=== PATIENT | female | born 1975 | race Caucasian/White ===

== ENCOUNTER 2017-09-22 10:58 | Inpatient (IN) | payer MEDICAID ==
[~2017-09-22] VITALS: Ht 162.6 cm; Wt 65.5 kg
[2017-09-22 11:07] VITALS: Ht 162.6 cm; Wt 65.5 kg
[2017-09-22 11:45] LABS: BASOPHIL % 0.3 % (0-2); PLATELET COUNT 240 x10^3mcL (130-400); RED CELL DISTRIBUTION WIDTH 14.1 % (11.5-14.5)
[2017-09-22 12:01] LABS: CALCIUM 8.7 mg/dL (8.5-10.1); CARBON DIOXIDE 21.7 mmol/L (21-32); CHLORIDE SERUM 103 mmol/L (98-107); CREATININE SERUM 0.7 mg/dL (0.6-1.0); GFR1 > 60 mL/min; GLUCOSE SERUM 97 mg/dL (74-106); POTASSIUM SERUM 3.2 mmol/L (3.5-5.1); SODIUM SERUM 139 mmol/L (136-145)
[2017-09-22 12:04] LABS: ALBUMIN 3.9 g/dL (3.4-5.0); ALKALINE PHOSPHATASE 91 U/L (46-116); ALT/SGPT 81 U/L (14-59); AST/SGOT 72 U/L (15-37); BILIRUBIN TOTAL 0.99 mg/dL (0.20-1.00); HDL CHOLESTEROL 57 mg/dL (40-60); LIPASE 130 IU/L (73-393); TOTAL PROTEIN, SERUM 7.7 g/dL (6.4-8.2); TRIGLYCERIDES 81 mg/dL (<150)
[2017-09-22 12:11] LABS: CHOLESTEROL 115 mg/dL (<200)
[2017-09-22 12:12] LABS: T3 TOTAL 0.95 ng/mL
[2017-09-22 12:15] LABS: FREE T4 1.16 ng/dL (0.76-1.46); FREE THYROXINE INDEX 2.8 ug/dL (1.4-4.5)
[2017-09-22 13:35] LABS: UA SPECIFIC GRAVITY 1.025 (1.005-1.035); microscopic required? YES; urine erythrocyte 3+ (NEGATIVE)
[2017-09-22 15:32] LABS: PHOSPHOROUS 1.8 mg/dL (2.5-4.9)
[2017-09-22 15:50] VITALS: BP 103/83
[2017-09-22 17:08] LABS: AMPHETAMINE QUAL UR NONE DETECTED (See below)
[2017-09-22] MEDS ORDERED: XANAX0.25 MG PO (20:49)
[2017-09-22 21:59] VITALS: BP 102/62
[2017-09-23 04:40] LABS: PLATELET COUNT 171 x10^3mcL (130-400); RED CELL DISTRIBUTION WIDTH 14.2 % (11.5-14.5)
[2017-09-23 04:54] LABS: SODIUM SERUM 141 mmol/L (136-145)
[2017-09-23 04:55] LABS: CARBON DIOXIDE 22.2 mmol/L (21-32); CHLORIDE SERUM 109 mmol/L (98-107); CREATININE SERUM 0.6 mg/dL (0.6-1.0); GFR1 > 60 mL/min; GLUCOSE SERUM 71 mg/dL (74-106); PHOSPHOROUS 2.7 mg/dL (2.5-4.9)
[2017-09-23 05:57] VITALS: BP 109/65
[2017-09-23 08:41] VITALS: BP 92/56
[2017-09-23 10:58] LABS: BAND NEUTROPHIL 0 % (0-10); BASOPHIL 0 % (0-2); MONOCYTE 7 % (0-7); SEGMENTED NEUTROPHILS 45 % (37-75)
[2017-09-23 10:59] LABS: PLATELET MORPHOLOGY PLATELETS NORMAL
[2017-09-23 12:47] VITALS: BP 92/62
[2017-09-23 16:27] VITALS: BP 95/63
[2017-09-24 05:39] VITALS: BP 112/72
[2017-09-24 06:53] LABS: BASOPHIL % 0.3 % (0-2); PLATELET COUNT 209 x10^3mcL (130-400); RED CELL DISTRIBUTION WIDTH 14.3 % (11.5-14.5)
[2017-09-24 07:10] LABS: CARBON DIOXIDE 25.2 mmol/L (21-32); CHLORIDE SERUM 108 mmol/L (98-107); CREATININE SERUM 0.6 mg/dL (0.6-1.0); GFR1 > 60 mL/min; GLUCOSE SERUM 66 mg/dL (74-106); MAGNESIUM 1.8 mg/dL (1.8-2.4); PHOSPHOROUS 2.5 mg/dL (2.5-4.9); POTASSIUM SERUM 3.8 mmol/L (3.5-5.1); SODIUM SERUM 142 mmol/L (136-145)
[2017-09-24 08:00] VITALS: BP 112/70
[2017-09-24 15:42] VITALS: BP 112/70
== END 2017-09-24 17:10 | disposition home or self-care (01) | DRG 463 ==
LOC: ED 10:58 → DU 14:08
PROVIDERS: Family Medicine; Specialist
DX: N39.0 Urinary tract infection, site not specified (principal); N17.0 Acute kidney failure with tubular necrosis; A08.4 Viral intestinal infection, unspecified; G90.8 Other disorders of autonomic nervous system; R74.0 Nonspecific elevation of levels of transaminase and lactic acid dehydrogenase [LDH]; R31.9 Hematuria, unspecified; E03.9 Hypothyroidism, unspecified; Z53.29 Procedure and treatment not carried out because of patient's decision for other reasons; Z90.49 Acquired absence of other specified parts of digestive tract
CPT/HCPCS: 83880; 84439; 87046; 87046-59; 94150; J0696; J2270; J2405; J2550; J3010; J3490; J7030; J8597; Q0092